=== PATIENT | female | born 1975 | race Caucasian/White ===

== ENCOUNTER 2023-02-28 18:50 | Emergency (ER) | payer SELFPAY ==
[2023-02-28 18:51] VITALS: BP 126/80; PULSE 100; RESP 22; TEMP 36.6; O2SAT 100; BMI 36.6
--- NOTE | 2023-02-28 18:51 | ECG_ITS ---
APPROVED REPORT Exam: Resting ECG HR:86 bpm ECG Measurements Heart Rate 86 AXES TN 150 P 62 QRSd 90 QRS 54 QT 366 T 37 QTc 410 Conclusion SINUS RHYTHM NORMAL ECG UNCONFIRMED REPORT Electronically signed by : Andrea Walls MD 03/01/2023 14:45:37
--- NOTE | 2023-02-28 19:04 | XR_ITS ---
PROCEDURE INFORMATION: Exam: XR Chest Exam date and time: 02/28/2023 7:06 PM Age: 47 years old Clinical indication: Pain; Chest pressure; Additional info: Chest pain TECHNIQUE: Imaging protocol: Radiologic exam of the chest. Views: 1 view. COMPARISON: No relevant prior studies available. FINDINGS: Lungs: Mild bibasilar atelectasis. Pleural spaces: Unremarkable. No pleural effusion. No pneumothorax. Heart/Mediastinum: Unremarkable. No cardiomegaly. Bones/joints: Unremarkable. IMPRESSION: No acute findings.
[2023-02-28 19:17] LABS: Chloride 107 mmol/L (98-107); Sodium 137 mmol/L (136-145)
[2023-02-28 19:18] LABS: Potassium 3.6 mmoL/L (3.5-5.1)
[2023-02-28 19:20] LABS: Alanine Aminotransferase 73 U/L (12-78); Alkaline Phosphatase 170 U/L (38-126); Aspartate Amino Transferase 124 U/L (14-36); Bilirubin,Total 0.7 mg/dl (0.2-1.3); Blood Urea Nitrogen 14 mg/dl (7-17); Creatinine Clearance Estimated 120 mL/min (50-200); Estimated Glomerular Filt Rate 67 ml/min (>60); GFR (African American) 81 ML/MIN (>60)
[2023-02-28 19:21] LABS: Albumin Level 3.5 g/dl (3.5-5.0); Albumin/Globulin Ratio 1.4 (1.1-1.8); Anion Gap 12.6 mEq/L (5-15); Calcium 8.1 mg/dl (8.4-10.2); Carbon Dioxide 21 mmol/L (22.0-30.0); Globulin 2.5 g/dL (1.3-3.2); Glucose 141 mg/dl (74-100)
[2023-02-28 19:23] LABS: Basophils # 0.1 K/mm3 (0-0.2); Basophils % 0.7 % (0.1-2.0); Eosinophils # 0.4 K/mm3 (0.0-0.4); Eosinophils % 4.1 % (0.1-12.0); Hematocrit 45.2 % (37.0-47.0); Lymphocytes # 1.9 K/mm3 (0.7-4.5); Mean Corpuscular HGB Conc 33.3 g/dL (31.8-35.4); Mean Corpuscular Volume 93.1 fl (81-99); Monocytes # 0.4 K/mm3 (0.1-1.0); Monocytes % 3.7 % (1.7-9.3); Neutrophils # 6.9 K/mm3 (1.8-7.8); Neutrophils % 71.6 % (37.0-80.0); Platelet Count 217 K/mm3 (142-424); Red Blood Count 4.86 M/mm3 (4.20-5.40); Red Cell Distribution Width 13.6 % (11.5-17.5); White Blood Count 9.7 K/mm3 (4.8-10.8)
[2023-02-28 19:33] LABS: Troponin I < 0.01 ng/ml (0.00-0.034)
--- NOTE | 2023-02-28 19:37 | HMH.EDCP ---
Discharge Plan Disposition Patient Disposition: Home, Self-Care Chief Complaint: Chest Pain Prescriptions Prescriptions: No Action bupropion HCl 150 MG Tablet 150 mg PO DAILY cetirizine [Zyrtec] 10 MG Capsule 10 mg PO DAILY ibuprofen 600 MG Tablet 600 mg PO Q6HP PRN (Reason: Moderate Pain) Qty: 20 0RF promethazine-DM 120 ML Syrup 5 ml PO Q6HP PRN (Reason: Cough) Qty: 240 0RF albuterol sulfate [Ventolin HFA] 18 GM Hfa.Aer.Ad 1 - 2 puffs inhalation Q4-6H PRN (Reason: Shortness Of Breath Or Wheezing) Qty: 1 0RF fluconazole [Diflucan] 150 MG Tablet 150 mg PO ONCE Qty: 2 2RF Referrals Follow up/Referrals: Provider,Referral, MD [Primary Care Provider] - See instructions Activity Restrictions/Add. Instructions Additional Instructions/Restrictions: Call your family doctor to establish care for this visit to the emergency department and schedule follow-up within 48 hours to ensure improvement. If you have any worsening of your condition or any other concerning signs or symptoms, return to the emergency department or your primary care doctor for further evaluation. Clinical Impressions Clinical Impression: Anxiety Discharge ED Provider: Hayder Huerta [facility] General Chief Complaint: Chest Pain Stated Complaint: chest pain Time Seen by Provider: 02/28/23 18:55 Mode of Arrival: EMS Source of Information: Patient Limitations: No Limitations Description of Symptoms (Recalled from ER Triage Doc. by RN): PT C/O MIDSTERNAL CHEST PAIN THAT STARTED ABOUT 1500, PT REPORTS DONATING PLASMA ABOUT 45 MINUTES PRIOR. REPORTS PAIN RADIATES TO RIGHT SIDE OF BACK. REPORTS SHORTNESS OF BREATH. HX OF ASTHMA, PTSD AND ANXIETY History of Present Illness HPI narrative: 39-year-old asthma and anxiety presenting with chest pain. Patient states that she donated plasma today around 1 PM. Started having chest pain shortly thereafter. Chest pain is substernal, nonradiating, associated with shortness of breath and anxiety. Did not take her inhaler at home. EMS was called, patient received DuoNeb on the way here, states that it helped quite a bit. Denies nausea or vomiting, diaphoresis, fevers or chills, cough, or any other concerns. Related Data Home Medications Medication Instructions Recorded Confirmed bupropion HCl 150 mg tablet,12 hr 150 mg PO DAILY Depression 01/12/18 01/12/18 sustained-release cetirizine 10 mg capsule (Zyrtec) 10 mg PO DAILY allergies 01/12/18 01/12/18 Previous Rx's Medication Instructions Recorded ibuprofen 600 mg tablet 600 mg PO Q6HP PRN Moderate Pain 01/12/18 ##20 albuterol sulfate 90 mcg/actuation 1 - 2 puffs inhalation Q4-6H PRN 06/07/18 aerosol inhaler (Ventolin HFA) Shortness Of Breath Or Wheezing ##1 fluconazole 150 mg tablet 150 mg PO ONCE ##2 06/07/18 (Diflucan) promethazine-DM 6.25 mg-15 mg/5 mL 5 ml PO Q6HP PRN Cough ##240 06/07/18 oral syrup Allergies Allergy/AdvReac Type Severity Reaction Status Date / Time tomato Allergy Verified 06/07/18 14:48 [facility] Disclaimer: The information contained in this section may have been updated after the patient was seen, as this information can be updated by other users. Social History Smoking Status: Never smoker alcohol intake: never current occupational status: other Travel in the last 8 weeks: None ROS Obtained: Yes All systems reviewed & no additional complaints except as documented Physical Exam General General appearance: alert, in no apparent distress and anxious Neck Neck exam: Present trachea midline Chest Chest inspection: Present normal inspection and symmetric chest wall rise Respiratory Respiratory exam: Present normal lung sounds bilaterally; Absent respiratory distress, wheezes, stridor, accessory muscle use or prolonged expiratory phase Cardiovascular Cardiovascular exam: Present regular rate and normal rhythm Extremities Exam Extremities exam: Absent edema Neurological Ex
[2023-02-28 21:16] VITALS: BP 121/79; PULSE 85; RESP 22; TEMP 36.7; O2SAT 97
== END 2023-02-28 21:23 | disposition home or self-care (01) ==
PROVIDERS: Emergency Provider Emergency Medicine
DX: R07.9 Chest pain, unspecified (principal); J45.909 Unspecified asthma, uncomplicated; R06.02 Shortness of breath; F41.9 Anxiety disorder, unspecified
CPT/HCPCS: 71045; 80053; 84484; 85025; 93005; 99285

== ENCOUNTER 2023-07-29 13:29 | Emergency (ER) | payer BC, SELFPAY ==
[2023-07-29] VITALS (7 sets, daily range): BP systolic 117–150; BP diastolic 69–84; PULSE 65–77; RESP 16–18; TEMP 36.6–36.7; O2SAT 93–100; BMI 33.3
--- NOTE | 2023-07-29 13:37 | CT_ITS ---
FINAL REPORT TECHNIQUE: Multiple axial CT sections were performed from the foramen magnum to the vertex. Coronal and sagittal reformatted images were also obtained. Postcontrast injection images were obtained. This study was performed with technique to keep radiation doses as low as reasonably achievable, (ALARA). Individualized dose reduction techniques using automated exposure control or adjustment of mA and/or kV according to the patient size were employed. CLINICAL HISTORY: on estrogen, new ZHU, bilateral blurry vision COMPARISON: None FINDINGS: CT HEAD WITH CONTRAST: The ventricles are normal in size and configuration. No extra-axial fluid collections are identified. No mass effect or midline shift is seen. No areas of abnormal parenchymal density or enhancement are present. No significant bony abnormality is present. There is a large polyp or retention cyst in the left maxillary sinus. IMPRESSION: No acute intracranial abnormality identified. Polyp or retention cyst left maxillary sinus. Reviewed, Interpreted and Dictated by Earl Allen III, MD Transcribed by Griselda Sinclair Authenticated and . [facility]
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
[2023-07-29 13:43] LABS: Basophils % 0.8 % (0.1-2.0); Eosinophils # 0.3 K/mm3 (0.0-0.4); Eosinophils % 5.1 % (0.1-12.0); Hematocrit 39.7 % (37.0-47.0); Lymphocytes # 1.6 K/mm3 (0.7-4.5); Lymphocytes % 29.9 % (10-50); Mean Corpuscular HGB Conc 32.7 g/dL (31.8-35.4); Mean Corpuscular Hemoglobin 31.1 pg (27.0-31.2); Mean Platelet Volume 10.9 fl (7.4-10.4); Monocytes # 0.2 K/mm3 (0.1-1.0); Monocytes % 4.3 % (1.7-9.3); Neutrophils # 3.2 K/mm3 (1.8-7.8); Neutrophils % 59.9 % (37.0-80.0); Platelet Count 218 K/mm3 (142-424); Red Blood Count 4.18 M/mm3 (4.20-5.40); Red Cell Distribution Width 14.1 % (11.5-17.5); White Blood Count 5.3 K/mm3 (4.8-10.8)
[2023-07-29] MEDS: ACETAMINOPHEN 1,000MG/100ML VIAL 1000 MG IV (14:14)
[2023-07-29] MEDS: DEXAMETHASONE 4MG/ML 1ML VIAL 10 MG IV (14:14)
[2023-07-29] MEDS: diphenhydrAMINE 50MG/ML VIAL 25 MG IV (14:14)
[2023-07-29] MEDS: KETOROLAC 30MG/ML VIAL 15 MG IV (14:15)
[2023-07-29] MEDS: PROCHLORPERAZINE 10MG/2ML VIAL 10 MG IV (14:15)
[2023-07-29 14:18] LABS: Alanine Aminotransferase 37 U/L (12-78); Albumin Level 4.4 g/dl (3.5-5.0); Albumin/Globulin Ratio 1.3 (1.1-1.8); Alkaline Phosphatase 106 U/L (38-126); Aspartate Amino Transferase 34 U/L (14-36); Bilirubin,Total 0.5 mg/dl (0.2-1.3); Blood Urea Nitrogen 12 mg/dl (7-17); Calcium 9.1 mg/dl (8.4-10.2); Carbon Dioxide 26 mmol/L (22.0-30.0); Chloride 105 mmol/L (98-107); Creatinine Clearance Estimated 123 mL/min (50-200); Estimated Glomerular Filt Rate 77 ml/min (>60); GFR (African American) 93 ML/MIN (>60); Globulin 3.4 g/dL (1.3-3.2); Glucose 93 mg/dl (74-100); Sodium 140 mmol/L (136-145); Total Protein,Serum 7.8 g/dl (6.3-8.2)
[2023-07-29] MEDS: 0.9 % SODIUM CHLORIDE 50 ML VIAL IV (14:26)
[2023-07-29] MEDS: SODIUM CHLORIDE 0.9% 10ML SYR (RAD ONLY) 10 ML IV (14:26)
[2023-07-29] MEDS: IOPAMIDOL-370 (76%);100ML BOTTLE 100 ML IV (14:27)
--- NOTE | 2023-07-29 15:31 | PC.NURSE ---
rounded on pt. expressed no needs at this time.
== END 2023-07-29 17:07 | disposition home or self-care (01) ==
PROVIDERS: Emergency Provider Emergency Medicine
DX: G43.909 Migraine, unspecified, not intractable, without status migrainosus (principal); R11.2 Nausea with vomiting, unspecified; H53.8 Other visual disturbances; Z79.890 Hormone replacement therapy
CPT/HCPCS: 70496; 80053; 85025; 96374; 96375; 99284; J0131; Q9967

== ENCOUNTER 2024-02-23 14:34 | Emergency (ER) | payer BC, SELFPAY ==
[2024-02-23 15:05] VITALS: BP 129/75; PULSE 88; RESP 17; TEMP 36.8; O2SAT 96; BMI 40.9
--- NOTE | 2024-02-23 15:17 | ED_ITS ---
Discharge Plan Disposition Patient Disposition: Home, Self-Care Condition: Good Prescriptions Prescriptions: New azithromycin [Zithromax Z-Javier] 250 mg tablet See Rx Instructions .ROUTE .COMPLEX 5 Days Qty: 6 0RF Rx Instructions: For 250 mg dose pack: take 500 mg today (day 1), then 250 mg for 4 days (days 2-5) methylprednisolone [Medrol (Javier)] 4 mg tablets,dose pack See Rx Instructions .Route .COMPLEX 6 Days Qty: 21 0RF Rx Instructions: taper pack; ondansetron 4 mg tablet,disintegrating 4 mg PO Q8H PRN (Reason: nausea and vomiting) Qty: 10 0RF guaifenesin [Mucinex] 600 mg tablet extended release 12hr 600 - 1,200 mg PO BID PRN (Reason: cough) Qty: 20 0RF No Action bupropion HCl 150 MG tablet sustained-release 12 hr 150 mg PO DAILY Zyrtec 10 MG capsule 10 mg PO DAILY Referrals Follow up/Referrals: Provider,Referral, MD [Primary Care Provider] - See instructions Activity Restrictions/Add. Instructions Additional Instructions/Restrictions: * Start antibiotic today. Be sure to complete entire prescription even if feeling better * Monitor temp. Tylenol every 4 hours as needed and / or ibuprofen every 6 hours as needed ( As long as your primary care physician has told you that it ok to take both. For fever/aches/pains ER if no less than 101 despite Tylenol or Motrin * Humidifier/vaporizer or hot steamy shower * Inhaler every 4-6 hours as needed like we discussed. If unsure how to use it, ask pharmacist to demonstrate how. Should help open airways and improve cough, wheezing, and shortness of breath * Mucinex for your cough Be sure to drink lots of water. *Start steroid today. Helps with inflammation therefore, cough and wheezing. Follow directions on the package. Reviewed side effects. Patient reports taking them before. Follow up IMMEDIATELY for new or worsening of symptoms OR no noticeable improvement over the next 48-72 hours. 911 immediately for any life threatening symptoms such as chest pain or difficulty breathing Clinical Impressions Clinical Impression: Bronchitis Instructions Patient Instructions: Sore Throat, Acute Bronchitis Print Language Print Language: Citizen Of [place] Discharge ED Provider: Belle Anderson [facility] [place] HPI General Stated complaint: cough sore throat Mode of Arrival: Ambulatory Source of Information: Patient Limitations: No Limitations Time Seen by Provider: 02/23/24 15:17 Description of Symptoms (Recalled from Triage Doc. by RN): PATIENT C/O SORE THROAT, COUGH, HOARSE VOICE, AND VOMITING X 2 SINCE LAST NIGHT HEENT Symptoms (Recalled from RN notes): Yes Resp Symptoms (Recalled from RN notes): Yes Skin Symptoms (Recalled from RN notes): No MS Symptoms (Recalled from RN notes): No Functional Status (Recalled from RN notes): WNL History of Present Illness Provider Complaint: Patient states that for the last couple of days she has been having sinus congestion, pressure and drainage in the back of her throat, N/V, cough and sore throat States for the last couple of days she has loss her voice States that her throat feels raw and wasnt sure if she may have strep throat or bronchitis Related Data Home Medications ?Medication ?Instructions ?Recorded ?Confirmed bupropion HCl 150 mg tablet,12 hr 150 mg PO DAILY Depression 01/12/18 02/23/24 sustained-release cetirizine 10 mg capsule (Zyrtec) 10 mg PO DAILY allergies 01/12/18 02/23/24 Previous Rx's ?Medication ?Instructions ?Recorded azithromycin 250 mg tablet See Rx Instructions PO .COMPLEX 5 02/23/24 (Zithromax Z-Javier) days #6 tabs guaifenesin 600 mg tablet, 600 - 1,200 mg (1 - 2 x 600 mg) PO 02/23/24 extended release 12 hr (Mucinex) BID PRN cough #20 tabs methylprednisolone 4 mg tablets in See Rx Instructions .Route 02/23/24 a dose pack (Medrol (Javier)) .COMPLEX 6 days #21 tabs ondansetron 4 mg disintegrating 4 mg PO Q8H PRN nausea and 02/23/24 tablet vomiting #10 tabs Allergies Allergy/AdvReac Type Severity Reaction Status Date / Time tomato Allergy Verified 06/07/18 14:48 Worker's Comp Is this a Worker's Comp case?: No [facility] Disclaimer: The information contained in this section may have been updated after the patient was seen, as this information can be updated by other users. Medical History (Updated 02/23/24 @ 15:31 by Belle Anderson APRN) PTSD (post-traumatic stress disorder) Asthma Depression Anxiety Surgical History History of cholecystectomy History of hysterectomy Social History Smoking Status: Never smoker alcohol intake: never current occupational status: other Travel in the last 8 weeks: None ROS Obtained: Yes All systems reviewed & no additional complaints except as documented and Yes Systems reviewed as appropriate & no additional complaints except as documented Constitutional Constitutional: Reports system reviewed and no additional complaints, except as documented, Reports as per HPI and Reports headache(s) ENT Ears, Nose, Mouth, and Throat: Reports system reviewed and no additional complaints, except as documented, Reports as per HPI, Reports headache(s), Reports sinus pain, Reports sinus pressure and Reports sore throat Cardiovascular Cardiovascular: Reports system reviewed and no additional complaints, except as documented and Reports as per HPI Respiratory Respiratory: Reports system reviewed and no additional complaints, except as documented, Reports as per HPI and Reports cough Gastrointestinal Gastrointestingal: Reports system reviewed and no additional complaints, except as documented, as per HPI, nausea and vomiting Neurologic Neurologic: Reports headache(s) Physical Exam General General appearance: alert and in no apparent distress ENT ENT exam: Present mucous membranes moist Expanded ENT Exam Nose exam: Present sinus tenderness Throat exam: Present other (Pharyngeal erythema noted with PND) Respiratory Respiratory exam: Present normal lung sounds bilaterally; Absent respiratory distress or wheezes Cardiovascular Cardiovascular exam: Present regular rate, normal rhythm and normal heart sounds Neurological Exam Neurological exam: Present alert, oriented X3 and normal gait Medical Decision Making Medical Records Screening: Per USPSTF and CDC recommendations, given the prevalence of disease in our region, it is our hospital?s policy to screen for HIV and viral Hepatitis for all patients aged 18 and over and those with ongoing risk factors. Jey Inquiry Pt receiving controlled substance: No Jey was queried for this patient: No Vital Signs: 02/23/24 15:05 Temperature 98.2 F Temperature Source Oral Pulse Rate [Left Brachial] 88 Respiratory Rate 17 Blood Pressure [Left Arm] 129/75 Blood Pressure Mean [Left Arm] 93 Blood Pressure Source [Left Arm] Automatic Cuff Blood Pressure Position [Left Arm] Sitting 02 Sat by Pulse Oximetry 96 Oxygen Delivery Method Room Air Lab Data Lab results reviewed: Yes I reviewed the patient's lab results.
[2024-02-23 15:18] LABS: UTC Strep Screen (Rapid) Negative (Negative)
[2024-02-23 15:34] VITALS: BP 129/75; PULSE 88; RESP 17; TEMP 36.8; O2SAT 96
== END 2024-02-23 15:38 | disposition home or self-care (01) ==
PROVIDERS: Emergency Provider Nurse Practitioner
DX: J40 Bronchitis, not specified as acute or chronic (principal); J02.9 Acute pharyngitis, unspecified; R05.9 Cough, unspecified; R49.0 Dysphonia; R11.2 Nausea with vomiting, unspecified; R51.9 Headache, unspecified
CPT/HCPCS: 87880; 99212; G0381

== ENCOUNTER 2024-11-30 17:24 | Emergency (ER) | payer BC, SELFPAY ==
--- NOTE | 2024-11-30 17:31 | ED_ITS ---
Discharge Plan Disposition Patient Disposition: Home, Self-Care Condition: Good Prescriptions Prescriptions: No Action azithromycin [Zithromax Z-Javier] 250 mg tablet See Rx Instructions .ROUTE .COMPLEX 5 Days Qty: 6 0RF Rx Instructions: For 250 mg dose pack: take 500 mg today (day 1), then 250 mg for 4 days (days 2-5) methylprednisolone [Medrol (Javier)] 4 mg tablets,dose pack See Rx Instructions .Route .COMPLEX 6 Days Qty: 21 0RF Rx Instructions: taper pack; ondansetron 4 mg tablet,disintegrating 4 mg PO Q8H PRN (Reason: nausea and vomiting) Qty: 10 0RF guaifenesin [Mucinex] 600 mg tablet extended release 12hr 600 - 1,200 mg PO BID PRN (Reason: cough) Qty: 20 0RF bupropion HCl 150 MG tablet sustained-release 12 hr 150 mg PO DAILY Zyrtec 10 MG capsule 10 mg PO DAILY Referrals Follow up/Referrals: Provider,Referral, MD [Primary Care Provider, Medical] - See instructions Activity Restrictions/Add. Instructions Additional Instructions/Restrictions: Use the inhaler or your nebulizer every 4 hours while you are awake for the next couple days. The steroid I gave you today will last for 3 days. Return to the emergency department if you have acute or worsening shortness of breath. Clinical Impressions Clinical Impression: Asthma exacerbation Stand Alone Forms Stand Alone Forms: Work/School Release Instructions Patient Instructions: Asthma -- Adult, Asthma -- Child Print Language Print Language: [place]an Discharge ED Provider: Sonja Null Adult HPI General Chief complaint: Asthma Stated complaint: cough,whezzy,pain in chest from coughing Time Seen by Provider: 11/30/24 17:31 History of Present Illness HPI narrative: Patient is an otherwise healthy 49-year-old female with a past medical history of asthma who presented to the emergency department with shortness of breath. Patient states that she has been feeling more short of breath over the last couple days. Patient has tried her nebulizers at home without significant relief. Patient denies any chest pain. Patient has had some upper respiratory symptoms. Patient denies any abdominal pain nausea vomiting or diarrhea. Patient denies any lower extremity swelling. Patient denies any cardiac history. Patient denies any heart failure. Patient denies any history of blood clots. Patient has not had any recent long travel. Related Data Home Medications ?Medication ?Instructions ?Recorded ?Confirmed bupropion HCl 150 mg tablet,12 hr 150 mg PO DAILY Depr ession 01/12/18 02/23/24 sustained-release cetirizine 10 mg capsule (Zyrtec) 10 mg PO DAILY aller gies 01/12/18 02/23/24 Previous Rx's ?Medication ?Instructions ?Recorded azithromycin 250 mg tablet See Rx Instructions PO .COM PLEX 5 02/23/24 (Zithromax Z-Javier) days #6 tabs guaifenesin 600 mg tablet, 600 - 1,200 mg (1 - 2 x 600 mg) PO 02/23/24 extended release 12 hr (Mucinex) BID PRN cough #20 tab s methylprednisolone 4 mg tablets in See Rx Instructions .Route 02/23/24 a dose pack (Medrol (Javier)) .COMPLEX 6 days #21 tabs ondansetron 4 mg disintegrating 4 mg PO Q8H PRN nausea and 02/23/24 tablet vomiting #10 tabs Allergies Allergy/AdvReac Type Severity Reaction Status Date / Time tomato Allergy Verified 06/07/18 14:48 [facility] Disclaimer: The information contained in this section may have been updated after the patient was seen, as this information can be updated by other users. Medical History (Updated 11/30/24 @ 20:26 by Sonja Null DO) PTSD (post-traumatic stress disorder) Asthma Depression Anxiety Surgical History History of cholecystectomy History of hysterectomy Social History Smoking Status: Never smoker alcohol intake: never current occupational status: other Travel in the last 8 weeks?: None Have you lived/traveled outside US in past 30 days?: No Contact w/someone who lives/traveled outside US past 30 days?: No Exposure to someone with infectious disease in past 14 days?: No Do you have a fever (greater than 100.4 F or 38 C)?: No Have you tested positive for COVID-19?: No Exposed to someone with COVID-19 in past 14 days?: No Do you have a sore throat?: No Do you have a cough?: No Do you have any weakness?: No Do you have any diarrhea?: No Are you experiencing any unusual bleeding?: No Do you have any muscle aches/pain?: No Do you have any abdominal pain?: No Are you experiencing loss of taste or smell?: No ROS Obtained: Yes All systems reviewed & no additional complaints except as documented and Yes Systems reviewed as appropriate & no additional complaints except as documented Physical Exam General General appearance: alert and in no apparent distress Head Head exam: atraumatic, normocephalic and normal inspection Eye Eye exam: Present normal appearance, PERRL and EOMI; Absent scleral icterus ENT ENT exam: Present normal exam and normal external ear exam Neck Neck exam: Present normal inspection and full ROM Chest Chest inspection: Present normal inspection and symmetric chest wall rise Respiratory Respiratory exam: Present normal lung sounds bilaterally and wheezes (mild expiratory wheezing in all lung ruiz); Absent respiratory distress Cardiovascular Cardiovascular exam: Present regular rate, normal rhythm and normal heart sounds Abdominal Exam Abdominal exam: Present soft and distention; Absent tenderness, guarding or rebound Extremities Exam Extremities exam: Present normal inspection and full ROM Back Exam Back exam: Present normal inspection and full ROM Neurological Exam Neurological exam: Present alert and oriented X3 Psychiatric Psychiatric exam: Present normal affect and normal mood Skin Skin exam: Present warm and dry Medical Decision Making Medical Records Screening: Per USPSTF and CDC recommendations, given the prevalence of disease in our region, it is our hospital?s policy to screen for HIV and viral Hepatitis for all patients aged 18 and over and those with ongoing risk factors. Jey Inquiry Pt receiving controlled substance: No Vital Signs: 11/30/24 17:32 11/30/24 18:30 11/30/24 19:01 Temperature 98.5 F Temperature Source Oral Pulse Rate 101 H 88 Pulse Rate [Right] 95 H Respiratory Rate 22 Blood Pressure 128/73 140/75 Blood Pressure [Right Arm] 125/101 H Blood Pressure Mean 91 Blood Pressure Mean [Right Arm] 109 Blood Pressure Source Blood Pressure Position 02 Sat by Pulse Oximetry 97 95 100 Oxygen Delivery Method Room Air 11/30/24 19:01 11/30/24 19:31 11/30/24 20:01 Temperature Temperature Source Pulse Rate 104 H 98 H 109 H Pulse Rate [Right] Respiratory Rate Blood Pressure 127/70 135/68 Blood Pressure [Right Arm] Blood Pressure Mean Blood Pressure Mean [Right Arm] Blood Pressure Source Blood Pressure Position 02 Sat by Pulse Oximetry 100 100 Oxygen Delivery Method 11/30/24 20:28 Temperature 98.0 F Temperature Source Oral Pulse Rate 98 H Pulse Rate [Right] Respiratory Rate 16 Blood Pressure 135/68 Blood Pressure [Right Arm] Blood Pressure Mean Blood Pressure Mean [Right Arm] Blood Pressure Source Automatic Cuff Blood Pressure Position Sitting 02 Sat by Pulse Oximetry Oxygen Delivery Method Room Air Lab Data Lab results reviewed: Yes I reviewed the patient's lab results. Lab Results 11/30/24 18:30: SARS-CoV-2 (PCR) Not detected, Influenza Type A (PCR) Not det ected, Influenza Type B (PCR) Not detected, RSV (PCR) Not detected, Rhinovirus (PCR) Not detected Orders (Tests/Meds): ED MEDICATIONS Discontinued Medications Generic Name Dose Route Start Last Admin Trade Name Freq PRN Reason Stop Dose Admin Albuterol Sulfate 20 mg 11/30/24 18:44 11/30/24 19:01 Albuterol 0.083% 2.5 Mg/3 Ml [facility] 11/30/24 18:45 20 mg ONCE ONE Administration Albuterol/Ipratropium 9 ml 11/30/24 17:37 11/30/24 17:44 Ipratropium/Albuterol 3 Ml [facility] 11/30/24 17:38 9 ml ONCE ONE Administration Dexamethasone 10 mg 11/30/24 17:37 11/30/24 17:44 Dexamethasone 4mg Tablet PO 11/30/24 17:38 10 mg ONCE ONE Administration ORDERS Category Date Time Status CXR 2 view (NOT portable) [XR chest 2V] Stat Exams 11/30/24 17:37 Completed Mini Respiratory Panel Stat Lab 11/30/24 18:30 Completed Medical Decision Narrative: Patient is an otherwise healthy 49-year-old female with a past medical history of asthma who presented to the emergency department with shortness of breath for the last couple days. On arrival, patient was hemodynamically stable with unremarkable vital signs Differential includes but not limited to: Viral process, asthma exacerbation, pneumonia, pneumothorax, pleural effusion, amongst others. On exam, patient had diffuse wheezing throughout. Patient was given 3 DuoNebs as well as oral dexamethasone. Patient was otherwise not requiring oxygen, patient was not hypoxic. On repeat evaluation after the 3 DuoNebs, patient continued to be wheezy but patient had improved air movement. Patient was placed on an hour of continuous albuterol. Patient's chest x-ray was reviewed and interpreted by myself and showed no acute focal elevation, pneumothorax, pleural effusion or other acute cardiopulmonary process. After an hour of continuous albuterol, patient's wheezing significantly improved at this time, patient continued to not be hypoxic not requiring oxygen. Patient felt significantly improved. At this time patient was felt to be appropriate for discharge home. Patient was advised to use her breathing treatments every 4 hours for the next 2 days while awake and patient was otherwise discharged home in stable condition. Return precautions were discussed Critical Care Critical Care Time Critical Care Time: No
[2024-11-30 17:32] VITALS: BP 125/101; PULSE 95; RESP 22; TEMP 36.9; O2SAT 97; BMI 34.1
--- OUTSIDE RECORDS SUMMARY | 2024-11-30 17:33 | XMS_ITS | Clinical Summary ---
Author Organization [facility] Address [address] [place] [address] Phone Care Team Providers Care Director Of Software Development Name Role Phone Estefanía Harper MD Primary Care Provider [phone] Allergies Active Allergy Reactions Criticality Noted Date Comments Tomato Anaphylaxis High 06/01/2010 Medications diphenhydrAMINE (BENADRYL) 25 mg tablet Take 25 mg by mouth every 4 hours as needed for Allergies. Active docusate sodium (COLACE) 100 mg capsule Take by mouth 2 times daily. Reported on 05/31/2016 Active loratadine (CLARITIN) 10 mg Oral Tablet Take 10 mg by mouth daily. Reported on 05/31/2016 Active ERGOCALCIFEROL, VITAMIN D2, (VITAMIN D2 ORAL) Take by mouth 2 times daily. Reported on 05/31/2016 Active cetirizine (ZYRTEC) 10 mg Oral Tablet Take 10 mg by mouth 2 times daily. Active Amoxicillin 500 mg Oral Tablet Take 1 Tab by mouth 3 times daily. 30 Tab 7 Active Additional Information Patient not taking.Reason: Therapy Completed, Reported on 02/02/2024 loperamide (IMODIUM) 2 mg Oral Capsule Take 1 Cap by mouth as needed for Diarrhea for up to 14 doses. Take 1 capsule after each loose stool. 14 Cap 7 Active Additional Information Patient not taking.Reason: Pt electing to not take the medication, Reported on 02/02/2024 ergocalciferol (DRISDOL) 50,000 unit Oral Capsule Take 50,000 Units by mouth once a week. Active albuterol (PROVENTIL HFA;VENTOLIN HFA) 90 mcg/actuation Inhl HFA Aerosol Inhaler Inhale 2 Puffs into the lungs every 6 hours as needed for Wheezing. Active buPROPion (WELLBUTRIN SR) 150 mg Oral Tablet Sustained Release 12 hr Take 150 mg by mouth daily. Active azithromycin (ZITHROMAX) 250 mg Oral TabletIndicatio ns:Acute bacterial bronchitis Take 2 tablets (500 mg) on Day 1, followed by 1 tablet (250 mg) once daily on Days 2 through 5. 6 Tab 0 Active Additional Information Patient not taking.Reason: Pt electing to not take the medication, Reported on 02/02/2024 estrogens, conjugated, (PREMARIN) 1.25 mg Oral Tablet Take 1.25 mg by mouth daily. Active azithromycin (ZITHROMAX) 250 mg Oral TabletIndicatio ns:Acute bacterial bronchitis Take 2 tablets (500 mg) on Day 1, followed by 1 tablet (250 mg) once daily on Days 2 through 5. 6 Tab 0 Active Additional Information Patient not taking.Reason: Therapy Completed, Reported on 02/02/2024 promethazine-de xtromethorphan (PROMETHAZINE-D M) 6.25-15 mg/5 mL Oral SyrupIndication s:Acute cough Take 5 mL by mouth every 6 hours as needed (for cough). 150 mL 4 Active Active Problems Problem Noted Date Diagnosed Date Osteoarthritis of right patellofemoral joint Chest pain 02/22/2013 DUB (dysfunctional uterine bleeding) 02/22/2013 Normocytic anemia 02/22/2013 Immunizations Immunization Administration Dates Next Due Influenza Vaccine, Unspecified Formulation 02/23 Tdap 02/23/2013 Surgical History Surgery Date Site/Laterality Comments APPENDECTOMY 03/15/1999 - 03/14/2000 TUBAL LIGATION ENDOMETRIAL ABLATION HYSTERECTOMY Medical History Medical History Date Comments Complication of 1995 HELP s yndrome Hypertension Anemia Family History Medical History Relation Name Comments High Blood Pressure Father Other Father PSA (supernucle ar advanced palsy) Other Maternal Grandmother CHF Other Maternal Uncle CHF Diabetes Mother High Blood Pressure Mother Other Mother angina, anxiety Other Other PGGM CHF High Blood Pressure Sister 1 High Cholesterol Sister 1 Cancer Sister 2 skin and breast Relation Name Status Comments Father Maternal Grandmother Maternal Uncle Mother Alive Other PGGM Sister 1 Alive Sister 2 Alive Social History Tobacco Use Types Packs/Day Years Used Date Smoking Tobacco: Former Smokeless Tobacco: Former Comments:quit 11 years ago ( used chewing tobacco for 6 months) Alcohol Use Standard Drinks/Week Comments Yes 0 (1 standard drink = 0.6 oz pur e alcohol) socially Comments No Sex and Gender Information Value Date Recorded Sex Assigned at Not on file Legal Sex Female 1:52 AM EDT Gender Identity Not on file Sexual Orientation Not on file Obstetrics History Last Filed Vital Signs Vital Sign Reading Time Taken Comments Blood Pressure 140/80 02/02/2024 4:15 PM EST Pulse 94 02/02/2024 4:15 PM EST Temperature 36.7 C (98.1 F) 02/02/2024 4:15 PM EST Respiratory Rate 20 02/02/2024 4:15 PM EST Oxygen Saturation 98% 02/02/2024 4:15 PM EST Inhaled Oxygen Concentration - - Weight 111.1 kg (245 lb) 02/02/2024 4:15 PM EST Height 165.1 cm (5' 5 ) 02/02/2024 4:15 PM EST Body Mass Index 40.77 02/02/2024 4:15 PM EST Plan of Treatment Health Maintenance Due Date Last Done Comments Annual Wellness Exam 1977 Cervical Cancer Screening 08/09/1995 Pap Smear 08/09/1995 HPV/Pap Cotest 2004 Breast Cancer Screening 2014 Cologuard 08/09/2019 Colon Cancer Screening 08/09/2019 Colonoscopy 08/09/2019 FIT 08/09/2019 Sigmoidoscopy 08/09/2019 Virtual Colonography 08/09/2019 DTaP/TDaP/Td (2 - Td or Tdap) 02/23/2023 02/23/2013, 02/23/2013 Zoster (1 of 2) 2024 COVID-19 Vaccine ( season) 2024 01/01/2023, 12/31/2021, 10/31/2021, Additional history exists Influenza Vaccine (#1) 2024 3, 12/31/2021, 01/13/2020, Additional history exists Hepatitis B Vaccine Completed 12/06/2018, 02/07/2018, 12/09/2017 Pneumococcal Vaccine 50+ Completed 02/03/2022 Meningococcal B Vaccine Aged Out No l onger eligible based on patient's age to complete this topic Insurance [facility]UM [employer] [facility] PPO [employer]UM Advance Directives For more information, please contact: [phone] * Full Code (Latest Code Status on File) Date Activated Date Inactivated Comments 02/22/2013 9:36 PM 02/23/2013 3:11 PM Care Teams Director Of Software Development Relationship Specialty Start Date End Date Estefanía Hraper MD [address] [place] [address] PCP - General 03/31/15
--- OUTSIDE RECORDS SUMMARY | 2024-11-30 17:33 | XMS_ITS | Encounter Summary ---
Author Organization [facility] [place] [address] Care Team Providers Care Award Machine Operator Name Role Phone Estefanía Harper MD Primary Care Provider [phone] Encounter Details Date Type Department Care Team (Late st Contact Info) Description 06/04/2010 Orders Only [facility] [address] [place] [address] Jeanette Norris MD [address] [place] [address] Social History Tobacco Use Types Packs/Day Years Used Date Smoking Tobacco: Never Smokeless Tobacco: Former Comments:quit 11 years ago Alcohol Use Standard Drinks/Week Comments Yes 0 (1 standard drink = 0.6 oz pur e alcohol) socially Comments No Sex and Gender Information Value Date Recorded Sex Assigned at Not on file Legal Sex Female 1:52 AM EDT Gender Identity Not on file Sexual Orientation Not on file documented as of this encounter Plan of Treatment Not on file documented as of this encounter Procedures Procedure Name Priority Date/Time Associated Diagnosis Comments ECHO - HISTORICAL Routine 06/04/2010 12: 00 AM EDT documented in this encounter Results * ECHO - HISTORICAL (06/04/2010 12:00 AM EDT) Anatomical Region Laterality Modality Other 06/04/2010 Narrative 04/22/2011 11:20 AM EST NOTICE: This report was electronically copied on 05/18/2011 from historical data generated by a practice prior to that practice using [facility] for Medical Records. Performing Provider: JEANETTE NORRIS Jeanette Norris MD IMG ECHO ORDERABLES Nancy l Result documented in this encounter Visit Diagnoses Not on filedocumented in this encounter Additional Health Concerns Infection Onset Date Last Indicated Resolved Time INFLUENZA 05/31/2016 05/31/2016 05/31/2016 4:01 PM EDT documented as of this encounter Care Teams Award Machine Operator Relationship Specialty Start Date End Date Estefanía Harper MD [address] [place] [id number] PCP - General 03/31/15 documented as of this encounter
--- NOTE | 2024-11-30 17:37 | XR_ITS ---
PROCEDURE INFORMATION: Exam: XR Chest Exam date and time: 11/30/2024 5:49 PM Age: 49 years old Clinical indication: Cough; Additional info: Cough/shortness of breath TECHNIQUE: Imaging protocol: Radiologic exam of the chest. Views: 2 views. COMPARISON: CR XR CHEST PORTABLE 02/28/2023 7:06 PM FINDINGS: Lungs: Central opacities with peribronchial cuffing, seen to advantage on the lateral chest radiograph. Pleural spaces: Unremarkable. No pleural effusion. No pneumothorax. Heart/Mediastinum: Unremarkable. No cardiomegaly. Bones/joints: Unremarkable. IMPRESSION: Combination of findings that suggests viral process versus reactive airways without evidence of consolidation.
[2024-11-30] MEDS: DEXAMETHASONE 4MG TABLET 10 MG PO (17:44)
[2024-11-30] MEDS: IPRATROPIUM/ALBUTEROL 3 ML NEB 9 ML IH (17:44)
[2024-11-30 18:30] VITALS: BP 128/73; PULSE 101; O2SAT 95
[2024-11-30 18:54] LABS: Coronavirus 19, PCR Not Detected (NotDetected); Influenza A, PCR Not Detected (NotDetected); Influenza B, PCR Not Detected (NotDetected)
[2024-11-30 19:01] VITALS: BP 140/75; PULSE 104; PULSE 88; O2SAT 100
[2024-11-30] MEDS: ALBUTEROL 0.083% 2.5 MG/3 ML NEB 20 MG IH (19:01)
[2024-11-30 19:31] VITALS: BP 127/70; PULSE 98; O2SAT 100
[2024-11-30 20:01] VITALS: BP 135/68; PULSE 109; O2SAT 100
[2024-11-30 20:28] VITALS: BP 135/68; PULSE 98; RESP 16; TEMP 36.7; O2SAT 98
--- NOTE | 2024-12-01 04:41 | PC.NURSE ---
PT called r/t results from recent visit. Name and given for verification.
== END 2024-11-30 20:34 | disposition home or self-care (01) ==
PROVIDERS: Emergency Provider Student in an Organized Health Care Education/Training Program
DX: J45.901 Unspecified asthma with (acute) exacerbation (principal)
CPT/HCPCS: 71046; 87631; 99283; 99285; J8540